=== PATIENT | male | born 1950 | race Caucasian/White ===

== ENCOUNTER → 2018-02-12 09:44 | Outpatient (CLI) | payer OTHER, MEDICARE, SELFPAY | PROVIDERS: PCP Family Medicine; Visit Provider Specialist | DX: N40.1 Benign prostatic hyperplasia with lower urinary tract symptoms (principal) | CPT/HCPCS: 36415; 84153 ==

== ENCOUNTER → 2019-03-25 10:57 | Outpatient (CLI) | payer OTHER, MEDICARE, SELFPAY ==
[2019-03-25 14:00] LABS: Prostate Specific Antigen 1.93 ng/mL (0.10-4.00)
== END ==
PROVIDERS: Family Provider Family Medicine; PCP Family Medicine; Visit Provider Specialist
DX: N40.1 Benign prostatic hyperplasia with lower urinary tract symptoms (principal)
CPT/HCPCS: 36415; 84153

== ENCOUNTER → 2020-05-11 11:13 | Outpatient (CLI) | payer OTHER, MEDICARE, SELFPAY ==
[2020-05-11 13:35] LABS: Prostate Specific Antigen 1.75 ng/mL (0.10-4.00)
== END ==
PROVIDERS: Family Provider Family Medicine; PCP Family Medicine; Referring Provider Specialist; Visit Provider Specialist
DX: N40.0 Benign prostatic hyperplasia without lower urinary tract symptoms (principal)
CPT/HCPCS: 36415; 84153

== ENCOUNTER → 2022-03-22 14:20 | Outpatient (CLI) | payer OTHER, MEDICARE, SELFPAY ==
[2022-03-22 15:43] LABS: Prostate Specific Antigen 3.53 ng/mL (0.10-4.00)
== END ==
PROVIDERS: Family Provider Family Medicine; PCP Family Medicine; Referring Provider Specialist; Visit Provider Specialist
DX: N13.8 Other obstructive and reflux uropathy (principal); N40.1 Benign prostatic hyperplasia with lower urinary tract symptoms; Z87.898 Personal history of other specified conditions
CPT/HCPCS: 36415; 84153

== ENCOUNTER → 2022-06-05 15:13 | Outpatient (CLI) | payer OTHER, MEDICARE, SELFPAY ==
[2022-06-05 16:59] LABS: Prostate Specific Antigen 1.56 ng/mL (0.10-4.00)
== END ==
PROVIDERS: Family Provider Family Medicine; PCP Family Medicine; Referring Provider Specialist; Visit Provider Specialist
DX: N13.8 Other obstructive and reflux uropathy (principal); N40.1 Benign prostatic hyperplasia with lower urinary tract symptoms
CPT/HCPCS: 36415; 84153

== ENCOUNTER → 2022-12-26 10:58 | Outpatient (CLI) | payer OTHER, MEDICARE, SELFPAY ==
[2022-12-26 14:20] LABS: Prostate Specific Antigen 1.71 ng/mL (0.10-4.00)
== END ==
PROVIDERS: Family Provider Family Medicine; Referring Provider Specialist; Visit Provider Specialist
DX: N40.1 Benign prostatic hyperplasia with lower urinary tract symptoms (principal); N13.8 Other obstructive and reflux uropathy
CPT/HCPCS: 36415; 84153

== ENCOUNTER → 2023-06-22 10:45 | Outpatient (CLI) | payer OTHER, MEDICARE, SELFPAY ==
[2023-06-22 12:51] LABS: Prostate Specific Antigen 1.53 ng/mL (0.10-4.00)
== END ==
PROVIDERS: Family Provider Family Medicine; Referring Provider Specialist; Visit Provider Specialist
DX: Z87.898 Personal history of other specified conditions (principal)
CPT/HCPCS: 36415; 84153

== ENCOUNTER → 2024-01-30 09:19 | Outpatient (CLI) | payer MEDICARE, SELFPAY ==
[2024-01-30 11:01] LABS: Prostate Specific Antigen 1.04 ng/mL (0.10-4.00)
== END ==
LOC: LAB 09:22
PROVIDERS: Family Provider Family Medicine; PCP Internal Medicine Geriatric Medicine; Referring Provider Specialist; Visit Provider Specialist
DX: N40.1 Benign prostatic hyperplasia with lower urinary tract symptoms (principal); N13.8 Other obstructive and reflux uropathy; R33.9 Retention of urine, unspecified; Z87.898 Personal history of other specified conditions
CPT/HCPCS: 36415; 84153

== ENCOUNTER → 2025-01-29 09:03 | Outpatient (CLI) | payer MEDICARE, SELFPAY ==
[2025-01-29 10:59] LABS: Prostate Specific Antigen 2.83 ng/mL (0.10-4.00)
== END ==
PROVIDERS: Family Provider Family Medicine; PCP Internal Medicine Geriatric Medicine; Referring Provider Urology; Visit Provider Urology
DX: N40.1 Benign prostatic hyperplasia with lower urinary tract symptoms (principal); N13.8 Other obstructive and reflux uropathy; Z87.898 Personal history of other specified conditions
CPT/HCPCS: 36415; 84153

== ENCOUNTER 2025-04-11 10:24 | Emergency (ER) | payer MEDICARE, SELFPAY ==
[2025-04-11 10:29] VITALS: BP 143/82; PULSE 75; O2SAT 95
[2025-04-11 10:31] VITALS: BP 141/83; PULSE 72; RESP 16; TEMP 37.1; O2SAT 96; BMI 25.0
--- NOTE | 2025-04-11 10:55 | DI.RAD.S_ITS ---
PROCEDURE: XR TIBIA FIBULA LT 2V INDICATIONS: fall trauma TECHNIQUE: 2 views of the tibia and fibula were acquired. COMPARISON: None. FINDINGS: Bones: No fractures or dislocations. No suspicious bony lesions. Soft tissues: No suspicious soft tissue calcifications or masses. IMPRESSION: No acute bony abnormality. Dictated by: Mylene Fuentes M.D. on 04/11/2025 at 11:03 Approved by: Mylene Fuentes M.D. on 04/11/2025 at 11:04
--- NOTE | 2025-04-11 10:55 | DI.RAD.S_ITS ---
PROCEDURE: XR FOOT LT MIN 3V INDICATIONS: left leg pain TECHNIQUE: 3 views of the foot were acquired. COMPARISON: None. FINDINGS: Bones: No fractures or dislocations. No suspicious bony lesions. There is a calcaneal enthesophyte. Soft tissues: No tibiotalar joint effusion. Achilles tendon appears normal. IMPRESSION: No acute bony abnormality. Dictated by: Mylene Fuentes M.D. on 04/11/2025 at 11:02 Approved by: Mylene Fuentes M.D. on 04/11/2025 at 11:03
--- NOTE | 2025-04-11 10:56 | ED.LOWEXIN ---
HPI - Extremity Injury (Lower) General Chief Complaint: Extremity Injury, Lower Stated Complaint: WIC: Severe bruise LT shine due to fall Time Seen by Provider: 04/11/25 10:30 Mode of arrival: Ambulatory History of Present Illness HPI Narrative: 74-year-old male history of PE on Eliquis, BPH, dyslipidemia fell off both last week tripping on the boat rope tied to the ankle landing on the boat steps having left leg pain and swelling and difficulty ambulating at this time. He did not take anything for the pain. Having hard time ambulating without significant pain. Denies chest pain, shortness of breath, dyspnea on exertion, back pain, bowel or bladder incontinence, neck pain, lightheadedness, dizziness, loss of consciousness. Other than what is stated 14 point review of system is negative. Related Data Home Medications ?Medication ?Instructions ?Recorded ?Confirmed apixaban 5 mg tablet (Eliquis) 5 mg PO BID 04/11/25 04/11/25 atorvastatin 80 mg tablet 80 mg PO ONCE PM 04/11/25 04/11/25 triamcinolone acetonide 0.1 % topical 04/11/25 04/11/25 topical ointment Previous Rx's ?Medication ?Instructions ?Recorded tamsulosin 0.4 mg capsule 0.8 mg (2 x 0.4 mg) PO BEDTIME 12/29/24 #180 caps Allergies Allergy/AdvReac Type Severity Reaction Status Date / Time No Known Drug Allergies Allergy Verified 04/11/25 10:31 Review of Systems Review of Systems ROS Unobtainable: All systems reviewed & are unremarkable except as noted in HPI and below Patient History Medical History Incomplete bladder emptying History of elevated PSA BPH w urinary obs/LUTS UTI (urinary tract infection) Male erectile disorder BPH (benign prostatic hyperplasia) Surgical History H/O hernia repair H/O vasectomy H/O circumcision History of appendectomy Exam Narrative Exam Narrative: GENERAL: [74] year old patient appears stated age. Well-developed patient, in mild distress. HEAD: Atraumatic. Normocephalic. EYES: Pupils equal round and reactive. Extraocular motions intact. No scleral icterus. No injection or drainage. ENT: Nose without bleeding, purulent drainage. Throat without erythema, tonsillar hypertrophy or exudate. Airway patent. NECK: Trachea midline. Non tender CARDIOVASCULAR: Regular rate and rhythm without murmurs, gallops, or rubs. RESPIRATORY: Clear to auscultation. Breath sounds equal bilaterally. No wheezes, rales, or rhonchi. GASTROINTESTINAL: Abdomen soft, non-tender, nondistended. EXTREMITIES: Left leg distal 1/3 anteriorly hematoma, and left lateral foot hematoma motor sensory intact +2 DP +2 PT cap refill less than 2 seconds. Calf girth is increased in size left left lower extremity compared to right with moderate tenderness to palpation. BACK: Nontender without deformity or crepitance. No flank tenderness. NEURO: AOx3. SKIN: No rash or erythema of visible areas Initial Vital Signs Initial Vital Signs: Vital Signs Temperature 98.7 F 04/11/25 10:31 Pulse Rate 72 04/11/25 10:31 Respiratory Rate 16 04/11/25 10:31 Blood Pressure 141/83 H 04/11/25 10:31 Pulse Oximetry 96 04/11/25 10:31 Oxygen Delivery Method Room Air 04/11/25 10:31 Course Orders Ordered: ED Orders 04/11/25 10:55 US periph venous low extrem lt Stat XR foot LT min 3V Stat XR tibia fibula LT 2V Stat Vital Signs Vital signs: Vital Signs - 8 hr 04/11/25 10:31 Temperature 98.7 F Pulse Rate 72 Respiratory Rate 16 Blood Pressure 141/83 H Pulse Oximetry 96 Oxygen Delivery Method Room Air MDM - Extremity Injury (Lower) Imaging Data Extremity x-ray #1: Radiologist's Impression: [address] [address] XRay Report Signed Patient: Dennys Quezada MR#: [id number] : 1950 Acct:[id number] Age/Sex: 74 / M Date of Service: 04/11/25 Loc: ED Accession Number: [id number] Procedure: XR tibia fibula LT 2V Ordering Provider: Natan Read D.O. PROCEDURE: XR TIBIA FIBULA LT 2V INDICATIONS: fall trauma TECHNIQUE: 2 views of the tibia and fibula were acquired. COMPARISON: None. FINDINGS: Bones: No fractures or dislocations. No suspicious bony lesions. Soft tissues: No suspicious soft tissue calcifications or masses. IMPRESSION: No acute bony abnormality. Extremity x-ray #2: Radiologist's Impression: [address] [address] XRay Report Signed Patient: Dennys Quezada MR#: [id number] : 1950 Acct:[id number] Age/Sex: 74 / M Date of Service: 04/11/25 Loc: ED Accession Number: [id number] Procedure: XR foot LT min 3V Ordering Provider: Natan Read D.O. PROCEDURE: XR FOOT LT MIN 3V INDICATIONS: left leg pain TECHNIQUE: 3 views of the foot were acquired. COMPARISON: None. FINDINGS: Bones: No fractures or dislocations. No suspicious bony lesions. There is a calcaneal enthesophyte. Soft tissues: No tibiotalar joint effusion. Achilles tendon appears normal. IMPRESSION: No acute bony abnormality. US - DVT: Radiologist's Impression: [address] [address] Ultrasound Report Signed Patient: Dennys Quezada MR#: [id number] : 1950 Acct:[id number] Age/Sex: 74 / M Date of Service: 04/11/25 Loc: ED Accession Number: [id number] Procedure: US periph venous low extrem lt Ordering Provider: Natan Read D.O. PROCEDURE: US PERIPH VENOUS LOW EXTREM LT INDICATIONS: left leg pain swelling TECHNIQUE: Real-time imaging, as well as color and pulse Doppler interrogation, were performed of the lower extremity deep veins from the inguinal ligament to the popliteal fossa, with documentation of the visualized calf veins. COMPARISON: None. FINDINGS: The common femoral, femoral, popliteal, and the visualized calf veins are normally compressible, and free of intraluminal thrombus. Color and pulse Doppler demonstrate normal phasic intraluminal flow. There is normal augmentation response to distal compression maneuver. Targeted sonography patient directive point of concern within the anterior patiño was performed in industrial relations representative images obtained. There is a subcutaneous hypoechoic heterogeneous fluid collection which measures 6.2 x 1.5 x 4.3 cm. This fluid collection shows no internal vascularity. IMPRESSION: No findings of lower extremity deep venous thrombosis. Findings most consistent with a subcutaneous hematoma. Dictated by: Mylene Fuentes M.D. on 04/11/2025 at 12:07 Approved by: Mylene Fuentes M.D. on 04/11/2025 at 12:08 [facility] Narrative Medical decision making narrative: Vital signs nurse triage note medication list previous ER visits in all imaging studies reviewed. Ultrasound showed no DVT but hematoma. X-rays tib-fib and foot showed no acute process. Differential diagnosis includes fracture contusion hematoma fracture dislocation DVT. Discharge Plan Departure Patient Disposition: Home Clinical Impression: Hematoma of left lower leg Instructions: DI for Contusion Activity Restrictions/Additional Instructions: Return with new or worsening symptoms. Follow up with PCP 1-2 weeks if no improvement in symptoms. Prescriptions: No Action atorvastatin 80 mg tablet 80 mg PO ONCE PM triamcinolone acetonide 0.1 % ointment topical Eliquis 5 mg tablet 5 mg PO BID tamsulosin 0.4 mg capsule 0.8 mg PO BEDTIME Qty: 180 2RF Referrals: Santos Calderon MD [Primary Care Provider, Internal Medicine] Stand Alone Forms: Patient Portal/API
[2025-04-11 13:39] VITALS: PULSE 68; O2SAT 95
[2025-04-11 13:40] VITALS: BP 155/84; PULSE 66; O2SAT 94
== END 2025-04-11 13:46 | disposition home or self-care (01) ==
PROVIDERS: Emergency Provider Family Medicine; PCP Internal Medicine Geriatric Medicine
DX: S80.12XA Contusion of left lower leg, initial encounter (principal); W01.198A Fall on same level from slipping, tripping and stumbling with subsequent striking against other object, initial encounter
CPT/HCPCS: 73590; 73630; 93971; 99284